=== PATIENT | male | born 1970 | race Two or more races ===

== ENCOUNTER → 2018-05-16 | Outpatient (CLI) | payer BC ==
[2018-05-16 10:05] LABS: Basophils # (auto) 0 uL; Basophils % (auto) 0.6 % (0.0-2.0); Eosinophils # (auto) 0.1 uL; Hematocrit 45.5 % (41.0-53.0); Lymphocytes # (auto) 1.2 uL; Lymphocytes % (auto) 28.7 % (10.0-50.0); Mean Corpuscular Hemoglobin 34.4 pg (28.0-32.0); Mean Corpuscular Hgb Conc. 35.2 g/dL (32.0-36.0); Mean Corpuscular Volume 97.8 fL (80.0-100.0); Monocytes # (auto) 0.4 uL; Monocytes % (auto) 8.9 % (0.0-12.0); Neutrophils # (auto) 2.5 uL; Neutrophils % (auto) 58.8 % (37.0-80.0); Platelet Count (auto) 164 10^3/uL (140-450); Red Blood Cells 4.66 10^6/uL (4.5-5.90); White Blood Cell 4.2 10^3/uL (4.4-10.8)
[2018-05-16 10:09] LABS: Urine Bacteria NONE SEEN /hpf (None Seen); Urine Blood Negative /uL (Negative); Urine Specific Gravity 1.019 (1.001-1.035); Urine WBC <1 /hpf (0 - 3)
[2018-05-16 10:42] LABS: Potassium 5.3 mmol/L (3.5-5.1)
[2018-05-16 10:43] LABS: Free T4 (Free Thyroxine) 1.09 ng/dL (0.89-1.76)
[2018-05-16 10:44] LABS: Prostate Specific Antigen 0.49 ng/mL (0.0-4.0)
[2018-05-16 10:56] LABS: Albumin 4.2 g/dL (3.4-5.0); BUN/Creatinine Ratio 16.3; Bilirubin, Total 0.9 mg/dL (0.2-1.0); Calcium 9.3 mg/dL (8.5-10.1); Total Protein 8.3 g/dL (6.4-8.2)
== END | disposition home or self-care (01) ==
LOC: LAB 08:15
PROVIDERS: ATTEND Internal Medicine
DX: I10 Essential (primary) hypertension (principal); E78.5 Hyperlipidemia, unspecified; E11.9 Type 2 diabetes mellitus without complications; R35.1 Nocturia
CPT/HCPCS: 36415; 80053; 80061; 81001; 82043; 82607; 83036; 84153; 84439; 84443; 85025; 85652

== ENCOUNTER → 2023-09-20 | Outpatient (CLI) | payer BC ==
[2023-09-20 07:11] LABS: Urine WBC None Seen /hpf (0 - 3)
[2023-09-20 07:17] LABS: Basophils # (auto) 0 10 ^3/uL (0-0.2); Basophils % (auto) 0.6 % (0.0-2.0); Eosinophils # (auto) 0.1 10 ^3/uL (0-0.8); Eosinophils % (auto) 3.4 % (0.0-7.0); Hematocrit 44.5 % (41.0-53.0); Hemoglobin 15.2 g/dL (13.5-17.5); Lymphocytes # (auto) 1.3 10 ^3/uL (0.4-5.4); Lymphocytes % (auto) 29.4 % (10.0-50.0); Mean Corpuscular Hemoglobin 32.9 pg (28.0-32.0); Mean Corpuscular Hgb Conc. 34.2 g/dL (32.0-36.0); Mean Corpuscular Volume 96.3 fL (80.0-100.0); Monocytes # (auto) 0.5 10 ^3/uL (0-1.3); Monocytes % (auto) 11.6 % (0.0-12.0); Neutrophils # (auto) 2.4 10 ^3/uL (1.6-8.6); Nucleated Red Blood Cells % 0.2 %; Red Blood Cells 4.62 10^6/uL (4.5-5.90); Red Cell Distribution Width 13.1 % (11.8-14.3); White Blood Cell 4.3 10^3/uL (4.4-10.8)
[2023-09-20 07:30] LABS: Urine Bacteria NONE SEEN /hpf (None Seen); Urine Blood Negative /uL (Negative); Urine Clarity Clear (Clear); Urine Color Colorless (Yellow); Urine Protein, UAD Negative (Negative); Urine Specific Gravity 1.019 (1.001-1.035); Urine Urobilinogen Normal (Negative)
[2023-09-20 07:56] LABS: Protein, Urine < 6.0 mg/dL (0.0-11.9)
[2023-09-20 07:58] LABS: Creatinine, Urine 95.59 mg/dL (30.0-125.0); Urine Protein/Creatinine Ratio 0.06
[2023-09-20 08:01] LABS: Micro Albumin < 3.0 mg/L (<30.0)
[2023-09-20 08:02] LABS: Alanine Aminotransferase 25 U/L (7-40); Alkaline Phosphatase 60 U/L (46-116); Calcium 9.3 mg/dL (8.5-10.1); Triglycerides 71 mg/dL (< 150)
[2023-09-20 08:03] LABS: Albumin 4.3 g/dL (3.2-4.8); Anion Gap 5 (5-15); Aspartate Aminotransferase 26 U/L (13-40); BUN/Creatinine Ratio 16.3 (10.0-20.0); Bilirubin, Total 0.7 mg/dL (0.2-1.0); Blood Urea Nitrogen 16 mg/dL (9-23); Carbon Dioxide 30 mmol/L (20-30); Chloride 103 mmol/L (98-107); Cholesterol 170 mg/dL (< 200); Glucose 156 mg/dL (74-106); HDL Cholesterol 62 mg/dL (40-59); LDL Cholesterol 106 mg/dL (< 100); Potassium 4.4 mmol/L (3.5-5.1); Sodium 138 mmol/L (136-145); Total Protein 6.7 g/dL (5.7-8.2)
[2023-09-20 08:32] LABS: Erythrocyte Sedimentation Rate 2 mm/hr (0-20)
[2023-09-20 10:26] LABS: Prostate Specific Antigen 0.38 ng/mL (0.0-4.0)
[2023-09-20 10:36] LABS: Free T4 (Free Thyroxine) 1.03 ng/dL (0.89-1.76)
== END | disposition home or self-care (01) ==
LOC: LAB 06:56
PROVIDERS: ATTEND Internal Medicine
DX: E11.9 Type 2 diabetes mellitus without complications (principal)
CPT/HCPCS: 36415; 80053; 80061; 81001; 82043; 82570; 82607; 84153; 84156; 84403; 84439; 84443; 85025; 85652

== ENCOUNTER → 2024-03-21 | Day surgery (SDC) | payer BC ==
[2024-03-14 09:17] LABS: Basophils # (auto) 0 10 ^3/uL (0-0.2); Basophils % (auto) 0.8 % (0.0-2.0); Eosinophils # (auto) 0.1 10 ^3/uL (0-0.8); Eosinophils % (auto) 2.7 % (0.0-7.0); Hematocrit 45.4 % (41.0-53.0); Hemoglobin 15.8 g/dL (13.5-17.5); Lymphocytes # (auto) 0.9 10 ^3/uL (0.4-5.4); Lymphocytes % (auto) 22.9 % (10.0-50.0); Mean Corpuscular Hemoglobin 33.7 pg (28.0-32.0); Mean Corpuscular Hgb Conc. 34.8 g/dL (32.0-36.0); Mean Corpuscular Volume 96.9 fL (80.0-100.0); Monocytes # (auto) 0.3 10 ^3/uL (0-1.3); Monocytes % (auto) 7.8 % (0.0-12.0); Neutrophils # (auto) 2.6 10 ^3/uL (1.6-8.6); Neutrophils % (auto) 65.8 % (37.0-80.0); Nucleated Red Blood Cells % 0.1 %; Platelet Count (auto) 167 10^3/uL (140-450); Red Blood Cells 4.68 10^6/uL (4.5-5.90); Red Cell Distribution Width 13.1 % (11.8-14.3); White Blood Cell 3.9 10^3/uL (4.4-10.8)
[2024-03-14 09:33] LABS: INR 1.08 (0.9-1.15); Partial Thromboplastin Time 24.5 SEC (24.5-34.5); Prothrombin Time 11.4 sec (9.3-11.8)
[2024-03-14 10:49] LABS: Alanine Aminotransferase 26 U/L (7-40); Albumin 4.6 g/dL (3.2-4.8); Alkaline Phosphatase 51 U/L (46-116); Anion Gap 7 (5-15); Aspartate Aminotransferase 20 U/L (13-40); BUN/Creatinine Ratio 14.7 (10.0-20.0); Blood Urea Nitrogen 14 mg/dL (9-23); Calcium 10.1 mg/dL (8.7-10.4); Carbon Dioxide 26 mmol/L (20-30); Chloride 105 mmol/L (98-107); Glucose 142 mg/dL (74-106); Potassium 4.4 mmol/L (3.5-5.1); Sodium 138 mmol/L (136-145)
[2024-03-14 10:50] LABS: Bilirubin, Total 1.1 mg/dL (0.2-1.0); Total Protein 7.5 g/dL (5.7-8.2)
[~2024-03-21] VITALS: Ht 177.8 cm; Wt 81.6 kg
[~2024-03-21] MED LIST: ATOR10TA PO; SODIUM CHLORIDE LOCK 10 ML ONE; VITALIQ10 XX
[2024-03-21 10:55] VITALS: PULSE 96; RESP 14; O2SAT 99
[2024-03-21] MEDS: fentaNYL CITRATE 100 MCG/2 ML VL ONE (10:57)
[2024-03-21] MEDS: MIDAZOLAM HCL 5 MG/ML-1ML VIAL ONE (10:57)
[2024-03-21] MEDS: diphenhdrAMINE HCL 50 MG/1 ML VL ONE (10:57)
[2024-03-21 11:14] VITALS: TEMP 98.2; O2SAT 97
[2024-03-21 11:49] VITALS: BP 114/72; PULSE 70; RESP 11; O2SAT 97
== END | disposition home or self-care (01) ==
LOC: GI 09:21
PROVIDERS: ATTEND Internal Medicine Gastroenterology
DX: Z12.11 Encounter for screening for malignant neoplasm of colon (principal); K64.8 Other hemorrhoids; K63.89 Other specified diseases of intestine; I10 Essential (primary) hypertension; E11.9 Type 2 diabetes mellitus without complications; Z98.890 Other specified postprocedural states; Z79.899 Other long term (current) drug therapy
CPT/HCPCS: 36415; 45378; 80053; 82962; 85025; 85610; 85730; J1200; J2250; J3010; 99152

== ENCOUNTER → 2024-04-13 | Outpatient (CLI) | payer BC ==
[~2024-04-13] MED LIST changes: -SODIUM CHLORIDE LOCK 10 ML ONE
[2024-04-13 07:41] LABS: Alanine Aminotransferase 19 U/L (7-40); Aspartate Aminotransferase 19 U/L (13-40); Cholesterol 137 mg/dL (< 200); HDL Cholesterol 57 mg/dL (40-59); LDL Cholesterol 71 mg/dL (< 100); Triglycerides 60 mg/dL (< 150)
== END | disposition home or self-care (01) ==
LOC: LAB 06:48
PROVIDERS: ATTEND Internal Medicine
DX: E11.9 Type 2 diabetes mellitus without complications (principal); E78.00 Pure hypercholesterolemia, unspecified
CPT/HCPCS: 36415; 80061; 83036; 84450; 84460

== ENCOUNTER 2025-06-13 10:34 | Outpatient (CLI) | payer BC ==
[2025-06-13 11:12] LABS: Hematocrit 46.1 % (41.0-53.0); Hemoglobin 15.7 g/dL (13.5-17.5); Mean Corpuscular Hemoglobin 33.0 pg (28.0-32.0); Mean Corpuscular Volume 97.2 fL (80.0-100.0); Nucleated Red Blood Cells % 0.1 %
[2025-06-13 11:16] LABS: Urine Protein, UAD Negative (Negative)
[2025-06-13 11:31] LABS: Alanine Aminotransferase 28 U/L (7-40); Albumin 4.7 g/dL (3.2-4.8); Alkaline Phosphatase 58 U/L (46-116); Anion Gap 9 (5-15); BUN/Creatinine Ratio 13.9 (10.0-20.0); Blood Urea Nitrogen 15 mg/dL (9-23); Calcium 9.7 mg/dL (8.7-10.4); Carbon Dioxide 28 mmol/L (20-31); Chloride 102 mmol/L (98-107); Potassium 4.4 mmol/L (3.5-5.1); Sodium 139 mmol/L (136-145); Total Protein 7.9 g/dL (5.7-8.2); Triglycerides 60 mg/dL (< 150)
[2025-06-13 11:32] LABS: Bilirubin, Total 0.9 mg/dL (0.2-1.0); Microalb/Creat Ratio, Urine < 6.00
[2025-06-13 11:33] LABS: Cholesterol 205 mg/dL (< 200); Free T4 (Free Thyroxine) 1.11 ng/dL (0.89-1.76); Glucose 141 mg/dL (74-106); HDL Cholesterol 64 mg/dL (40-59)
== END 2025-06-13 17:00 | disposition home or self-care (01) ==
LOC: LAB 10:34
PROVIDERS: ATTEND Internal Medicine
DX: E11.9 Type 2 diabetes mellitus without complications (principal); E78.5 Hyperlipidemia, unspecified
CPT/HCPCS: 36415; 80053; 80061; 81001; 82043; 82570; 82607; 83036; 84439; 84443; 85025; 85652